=== PATIENT | male | born 1945 | race Two or more races ===

== ENCOUNTER 2019-08-16 16:23 | Emergency (ER) | payer MEDICARE ==
[~2019-08-16] VITALS: Ht 172.7 cm; Wt 70.3 kg
[2019-08-16] MEDS ORDERED: NKM (16:25)
[2019-08-16 16:33] VITALS: BP 156/90
--- NOTE | 2019-08-16 16:33 | NUR ---
ED Nurse Note: PT BROUGHT IN BY AMBULANCE FROM HOME DUE TO RIGHT FLANK PAIN THAT RADIATES TO HIS RIGHT THIGH SINCE 1145 TODAY. PT DENIES ANY RECENT TRAUMA BUT MENTIONED THAT HE HAD A SEXUAL INTERCOURSE THIS MORNING. HX OF GALL BLADDER REMOVAL. AAO X4 AND AMBULATORY WITH NON LABORED BREATHING.
--- NOTE | 2019-08-16 16:36 | Emergency Room Report ---
History of Present Illness General Chief Complaint: Pain Source: Patient Present Illness HPI The patient presents with right lower quadrant right flank anterior pain that began fairly suddenly at 11 this morning. He had some diaphoresis associated with that but denies any nausea or vomiting. He moved his bowels normally this morning. He is never had pain like this but feels its aching, 8/10 and mainly radiating from the lower abdomen towards his flank. He likens it to how he felt when he had to have his gallbladder removed several years ago. He denies any fevers or chills. No sore throat, chest pain, shortness of breath or upper respiratory symptoms. No dysuria or hematuria. He has not taken any medication for the pain. He was brought in by EMS. He states he drinks a lot of fluids daily. However he feels dehydrated at this time. He takes no medication at home and is healthy. Allergies: Coded Allergies: No Known Allergies (Unverified , 08/16/19) Patient History Past Medical History: see triage record Past Surgical History: john Social History: Denies: smoking, alcohol use, drug use Social History Narrative Retired scientific investigator Reviewed Nursing Documentation: PMH: Agreed; PSxH: Agreed Nursing Documentation-PMH Past Medical History: No Stated History Review of Systems All Other Systems: negative except mentioned in HPI Physical Exam Vital Signs Date Time Temp Pulse Resp B/P (MAP) Pulse Ox O2 Delivery O2 Flow Rate FiO2 08/16/19 16:23 97.5 60 16 170/85 (113) 96 Room Air Sp02 EP Interpretation: reviewed, normal General Appearance: well appearing, no apparent distress, GCS 15 Head: normocephalic Eyes: bilateral eye normal inspection, bilateral eye PERRL, bilateral eye EOMI ENT: dry mucus membranes Neck: supple Respiratory: lungs clear, normal breath sounds Cardiovascular #1: regular rate, rhythm Cardiovascular #2: 2+ radial (R) Gastrointestinal: normal inspection, normal bowel sounds, no mass, non- distended, no guarding, no rebound, tenderness - Minimal right lower quadrant and right anterior flank Genitourinary: no CVA tenderness Musculoskeletal: back normal, gait/station normal, normal range of motion Neurologic: alert, oriented x3, grossly normal Psychiatric: mood/affect normal Skin: no rash Medical Decision Making Diagnostic Impression: Primary Impression: Ureterolithiasis Additional Impressions: Renal insufficiency Dehydration ER Course Patient presents with acute onset of right lower quadrant and right flank pain. Differential includes renal stone, aortic aneurysm, appendicitis, diverticulitis amongst others. Patient will be evaluated with EKG, CT of the abdomen and pelvis with contrast and labs. The patient will be given IV hydration and Toradol. EKG with bradycardia and PVCs. Rate 58. CBC normal. Mild renal insufficiency and elevated BUN. Urinalysis unremarkable. Pain after Toradol = 2/10. Await labs and CT. CT reveals 3 mm stone with obstruction and ureteral diverticula. Some stranding of the right kidney. Flomax given to the patient. Pain minimal at this time. However given that there is still pain probable non- passing of stone at this time. Instructed patient of findings and the importance of close outpatient follow- up. Advised of renal insufficiency and evidence of obstruction on the right- hand side and the possible need for repeat studies with ultrasound. Patient understands his cautions. He is improved and stable for outpatient observation and treatment. After discharge the patient called to state that he passed several possible stones and felt improved. Laboratory Tests Test 08/16/19 16:45 White Blood Count 9.2 K/UL (4.8-10.8) Red Blood Count 5.06 M/UL (4.70-6.10) Hemoglobin 15.4 G/DL (14.2-18.0) Hematocrit 44.4 % (42.0-52.0) Mean Corpuscular Volume 88 FL (80-99) Mean Corpuscular Hemoglobin 30.4 PG (27.0-31.0) Mean Corpuscular Hemoglobin Concent 34.7 G/DL (32.0-36.0) Red Cell Distribution Width 10.7 % (11.6-14.8) L Platelet Count 175 K/UL (150-450) Mean Platelet Volume 6.4 FL (6.5-10.1) L Neutrophils (%) (Auto) % (45.0-75.0) Lymphocytes (%) (Auto) % (20.0-45.0) Monocytes (%) (Auto) % (1.0-10.0) Eosinophils (%) (Auto) % (0.0-3.0) Basophils (%) (Auto) % (0.0-2.0) Differential Total Cells Counted 100 Neutrophils % (Manual) 90 % (45-75) H Lymphocytes % (Manual) 8 % (20-45) L Monocytes % (Manual) 2 % (1-10) Eosinophils % (Manual) 0 % (0-3) Basophils % (Manual) 0 % (0-2) Band Neutrophils 0 % (0-8) Platelet Estimate Adequate Platelet Morphology Normal Red Blood Cell Morphology Normal Prothrombin Time 10.7 SEC (9.30-11.50) Prothrombin Time INR 1.0 (0.9-1.1) PTT 25 SEC (23-33) Urine Color Yellow Urine Appearance Clear Urine pH 5 (4.5-8.0) Urine Specific [place] 1.025 (1.005-1.035) Urine Protein Negative (NEGATIVE) Urine Glucose (UA) Negative (NEGATIVE) Urine Ketones 3+ (NEGATIVE) H Urine Blood Negative (NEGATIVE) Urine Nitrite Negative (NEGATIVE) Urine Bilirubin Negative (NEGATIVE) Urine Urobilinogen Normal MG/DL (0.0-1.0) Urine Leukocyte Esterase Negative (NEGATIVE) Sodium Level 141 MMOL/L (136-145) Potassium Level 4.6 MMOL/L (3.5-5.1) Chloride Level 105 MMOL/L (98-107) Carbon Dioxide Level 27 MMOL/L (21-32) Anion Gap 9 mmol/L (5-15) Blood Urea Nitrogen 24 mg/dL (7-18) H Creatinine 1.4 MG/DL (0.55-1.30) H Estimate Glomerular Filtration Rate mL/min (>60) Glucose Level 159 MG/DL (74-106) H Calcium Level 9.6 MG/DL (8.5-10.1) Total Bilirubin 0.6 MG/DL (0.2-1.0) Aspartate Amino Transferase (AST) 17 U/L (15-37) Alanine Aminotransferase (ALT) 22 U/L (12-78) Alkaline Phosphatase 82 U/L (46-116) Troponin I 0.000 ng/mL (0.000-0.056) Total Protein 7.4 G/DL (6.4-8.2) Albumin 4.1 G/DL (3.4-5.0) Globulin 3.3 g/dL Albumin/Globulin Ratio 1.2 (1.0-2.7) Lipase 82 U/L (73-393) EKG Diagnostic Results Rate: bradycardiac Rhythm: NSR ST Segments: no acute changes - PVC Rhythm Strip Diag. Results EP Interpretation: yes Rhythm: other - Bradycardia rate [address]/MRI/US Diagnostic Results CT/MRI/US Diagnostic Results : Imaging Test Ordered: abd pelvis Impression 3 mm obstructing right vesicoureteral junction stone, possibly a 6 mm ureterocele, best seen on series 2 image 112, causes mild hydroureter and hydronephrosis and moderate amount of perinephric fat stranding and delayed nephrogram. Bilateral renal cysts. Moderate colonic diverticulosis. Small fat-containing bilateral inguinal hernias. Left lobe hepatic cyst. 13 mm hypodensity in right lobe of the liver on series 6 image 18 , may represent focal fatty filtration versus hemangioma. Less likely etiologies cannot be excluded. Small hiatal hernia. Appendix is not definitively visualized. Last Vital Signs Date Time Temp Pulse Resp B/P (MAP) Pulse Ox O2 Delivery O2 Flow Rate FiO2 08/16/19 21:03 97.4 78 16 143/74 98 Room Air Status: improved Disposition: HOME, SELF-CARE Condition: Improved Scripts Tamsulosin HCl (Flomax) 0.4 Mg Cap.er.24h 0.4 MG ORAL DAILY, #10 CAP Prov: Taco Abarca MD 08/16/19 Taco Abarca MD Aug 16, 2019 16:36
[2019-08-16] MEDS ORDERED: Ketorolac 30mg Inj IV ONE (16:45)
[2019-08-16] MEDS ORDERED: Omnipaque-300 100ml vial INJ PRN (16:45)
[2019-08-16 17:30] LABS: APPEARANCE,URINE CLEAR; BILIRUBIN, URINE NEGATIVE (NEGATIVE); GLUCOSE, URINE (UA) NEGATIVE (NEGATIVE); KETONES,URINE 3+ (NEGATIVE); LEUKOCYTE ESTERASE ,URINE NEGATIVE (NEGATIVE); NITRITE,URINE NEGATIVE (NEGATIVE); PH,URINE 5 (4.5-8.0); PROTEIN,URINE NEGATIVE (NEGATIVE); UROBILINOGEN,URINE NORMAL MG/DL (0.0-1.0)
[2019-08-16 17:36] LABS: COLOR,URINE YELLOW
[2019-08-16 17:38] LABS: ANION GAP 9 mmol/L (5-15); BLOOD UREA NITROGEN 24 mg/dL (7-18); CALCIUM 9.6 MG/DL (8.5-10.1); CARBON DIOXIDE 27 MMOL/L (21-32); CHLORIDE 105 MMOL/L (98-107); CREATININE 1.4 MG/DL (0.55-1.30); POTASSIUM 4.6 MMOL/L (3.5-5.1); SODIUM 141 MMOL/L (136-145)
[2019-08-16 17:42] LABS: ALANINE AMINOTRANSFERASE 22 U/L (12-78); ALBUMIN 4.1 G/DL (3.4-5.0); ALBUMIN/GLOBULIN RATIO 1.2 (1.0-2.7); ALKALINE PHOSPHATASE 82 U/L (46-116); ASPARTATE AMINO TRANSFERASE 17 U/L (15-37); BILIRUBIN,TOTAL 0.6 MG/DL (0.2-1.0)
[2019-08-16 17:48] LABS: HEMATOCRIT 44.4 % (42.0-52.0); HEMOGLOBIN 15.4 G/DL (14.2-18.0); MEAN CORPUSCULAR VOLUME 88 FL (80-99); PLATELET COUNT 175 K/UL (150-450); RED BLOOD COUNT 5.06 M/UL (4.70-6.10); RED CELL DISTRIBUTION WIDTH 10.7 % (11.6-14.8); WHITE BLOOD COUNT 9.2 K/UL (4.8-10.8)
--- NOTE | 2019-08-16 19:00 | NUR ---
ED Nurse Note: DR BAXTER IS OKAY TO CONTINUE WITH CT EVEN CREATININE 1.4 AND BUN 24.
--- NOTE | 2019-08-16 19:08 | NUR ---
HAND-OFF: Report given to KIANA VERDE.
--- NOTE | 2019-08-16 19:11 | NUR ---
ED Nurse Note: Handoff from RN. Patient currently in CT
--- NOTE | 2019-08-16 19:59 | Diagnostic Imaging Report ---
Clinical Indication: Right lower quadrant pain Technique: Patient ingested oral contrast. IV administration nonionic contrast. Venous phase spiral acquisition obtained through the abdomen and pelvis. Multiplanar reconstructions were generated. Total dose length product 911 mGycm. CTDIvol(s) 16 mGy. Dose reduction achieved using automated exposure control Comparison: none Findings: There is a 2 mm calculus in the distal right ureter just proximal to the ureteral orifice. There is mild right hydronephrosis and delay in renal opacification. There is a small amount of perinephric fluid. No intrarenal calculi are demonstrated. The kidneys demonstrate bilateral cysts and bilateral subcentimeter low-attenuation lesions. The bladder is distended, otherwise unremarkable. The prostate is enlarged, contains calcifications. Somewhat distended gas and stool-filled cecum without evidence of transition point. There is colonic diverticulosis. No evidence of diverticulitis. Oral contrast has traversed most but not all of the small bowel. No small bowel distention or small bowel wall thickening. The distal esophagus demonstrates a hiatal hernia and some wall thickening. The stomach and duodenum are otherwise unremarkable. No free or loculated intraperitoneal gas or fluid. The gallbladder has been removed. The liver demonstrates a cyst in segment 2 and a subcentimeter low-attenuation lesion in segment 7. There is a subcentimeter low-attenuation lesion in segment 5 which demonstrates equivocal slight peripheral nodular enhancement There is mild extrahepatic biliary ductal dilatation. The pancreas, spleen, adrenals are unremarkable. The bones are unremarkable. The lungs demonstrate bilateral posterior dependent atelectatic changes and/or scarring. Impression: Positive for 2 mm distal right ureteral calculus, resulting in mild right hydronephrosis and some perinephric fluid Prostatomegaly Bilateral renal cysts. Bilateral subcentimeter low-attenuation renal lesions, too small to characterize, most likely benign simple cysts. No further follow-up necessary. Right lobe liver lesion, could represent a small hemangioma or focal fatty infiltration, neoplasm less likely but not completely excludable. Consider further evaluation with ultrasound Small hiatal hernia. Hepatic cysts. Subcentimeter low-attenuation right lobe liver lesion, too small to characterize, most likely benign simple cyst Posterior dependent pulmonary atelectatic changes and/or scarring. Colonic diverticulosis. No evidence of diverticulitis This agrees with the preliminary interpretation provided overnight by [facility], with minor variations. The CT scanner at [facility] is accredited by the [employer] and the scans are performed using protocols designed to limit radiation exposure to as low as reasonably achievable to attain images of sufficient resolution adequate for diagnostic evaluation.
[2019-08-16] MEDS ORDERED: Tamsulosin 0.4mg cap ORAL STA (20:04)
[2019-08-16 20:39] VITALS: BP 137/79
[2019-08-16] MEDS ORDERED: FLOMAX0.4 MG ORAL (21:00)
[2019-08-16 21:03] VITALS: BP 143/74
== END 2019-08-16 21:05 | disposition home or self-care (01) ==
LOC: EDBD 16:23 → EMR 21:04
DX: N20.1 Calculus of ureter (principal); N28.9 Disorder of kidney and ureter, unspecified; E86.0 Dehydration; Z90.49 Acquired absence of other specified parts of digestive tract; K57.30 Diverticulosis of large intestine without perforation or abscess without bleeding; N28.1 Cyst of kidney, acquired; K40.90 Unilateral inguinal hernia, without obstruction or gangrene, not specified as recurrent; K76.89 Other specified diseases of liver; K44.9 Diaphragmatic hernia without obstruction or gangrene
CPT/HCPCS: 36415; 74177; 80053; 81003; 83690; 84484; 85007; 85025; 85610; 85730; 93005; 96361; 96374; 99284; J1885; Q9967; J7030